=== PATIENT | male | born 1965 | race Caucasian/White ===

== ENCOUNTER 2020-04-29 06:02 | Emergency (ER) | payer MEDICAID ==
[~2020-04-29] VITALS: Ht 182.9 cm; Wt 86.2 kg
[2020-04-29 06:07] VITALS: BP 156/90
[2020-04-29] MEDS ORDERED: NALO4SPR NS (07:03)
[2020-04-29] MEDS ORDERED: CHLO25CA22 PO (07:03)
[2020-04-29] MEDS ORDERED: CHLORDIAZEPOXIDE HCL 25 MG CAPSULE ONE ×2 (07:16)
[2020-04-29] MEDS: CHLORDIAZEPOXIDE HCL 25 MG CAPSULE PO ONE (07:17)
--- NOTE | 2020-04-29 07:18 | NUR ---
Patient discharged to home in stable condition. Written and verbal after care instructions given. Patient verbalizes understanding of instruction.
== END 2020-04-29 07:19 | disposition home or self-care (01) ==
LOC: ER 06:06
DX: F10.10 Alcohol abuse, uncomplicated (principal); F11.10 Opioid abuse, uncomplicated; F41.9 Anxiety disorder, unspecified; F17.200 Nicotine dependence, unspecified, uncomplicated; Y90.9 Presence of alcohol in blood, level not specified